=== PATIENT | male | born 2005 | race Caucasian/White ===

== ENCOUNTER 2024-04-05 20:53 | Emergency (ER) | payer SELFPAY ==
[~2024-04-05] VITALS: Ht 180.3 cm; Wt 85.0 kg
[2024-04-05 20:55] VITALS: BP 169/100; PULSE 123; RESP 18; TEMP 98.6; O2SAT 97
[2024-04-05 21:29] LABS: BASOPHILS % 0.6 % (0.0-2.0); EOSINOPHILS % 0.5 % (0.0-5.0); HEMATOCRIT. 43.5 % (42.0-52.0); HEMOGLOBIN. 14.2 g/dL (14.0-18.0); LYMPHOCYTES % 11.9 % (20.0-50.0); MEAN CORPUSCULAR HGB CONC 32.6 g/dL (31.0-37.0); MEAN CORPUSCULAR VOLUME 82.6 fL (80.0-94.0); MEAN PLATELET VOLUME 7.9 fl (7.4-10.4); MONOCYTES % 7.3 % (2.0-8.0); NEUTROPHILS % 79.7 % (40.0-76.0); PLATELET 338 x1000/uL (130-400); RED BLOOD CELL COUNT 5.27 mill/uL (4.7-6.1); RED CELL DISTRIBUTION WIDTH 14.3 % (11.6-14.6); WHITE BLOOD COUNT 10.6 x1000/uL (4.5-11.0)
[2024-04-05 21:30] LABS: CHLORIDE 104 mEq/L (98-107); POTASSIUM 3.4 mEq/L (3.5-5.1); SODIUM 137 mEq/L (136-145)
[2024-04-05 21:31] LABS: CALCIUM 9.5 mg/dL (8.7-10.4); CARBON DIOXIDE 25 mEq/L (21-32)
[2024-04-05 21:36] LABS: GLUCOSE 105 mg/dL (70-105); UREA NITROGEN BLOOD 9 mg/dL (9-23)
[2024-04-05 21:37] LABS: ETHANOL BLOOD 28 mg/dL (<10)
[2024-04-05 21:38] LABS: ACETAMINOPHEN < 2 ug/mL (10-30)
[2024-04-05] MEDS: LORAZEPAM 1MG TABLET PO ONE (21:51)
== END 2024-04-05 23:30 | disposition home or self-care (01) ==
LOC: ER 20:53
DX: F41.0 Panic disorder [episodic paroxysmal anxiety] (principal); F10.129 Alcohol abuse with intoxication, unspecified; F15.90 Other stimulant use, unspecified, uncomplicated; F12.90 Cannabis use, unspecified, uncomplicated; Y90.1 Blood alcohol level of 20-39 mg/100 ml
CPT/HCPCS: 36415; 80048; 80307; 80320; 80329; 85025; 99283; G0480